=== PATIENT | male | born 1970 | race Caucasian/White ===

== ENCOUNTER → 2016-12-12 | Outpatient (CLI) | payer BC ==
[~2016-12-12] MED LIST: ANAPROX DS550 MG PO; ASPI-COR81 M1 PO; ATENOLOL50 MG PO; BIAXIN500 MG PO; CIPRODEX 0.3%-7.5 ML OT; EC NAPROSYN500 MG PO; FLEXERIL10 MG PO; LISINOPRIL10 MG; LISINOPRIL10 MG PO; MAXALT10 MG PO; NAPROSYN500 MG PO; PATANOL 5 ML5 M1 OPH; PERCOCET 325 MG1 TA2 PO; PREDNICOT20 MG PO; PRILOSEC20 M1 PO; TOPROL
== END | disposition home or self-care (01) ==
LOC: RAD 17:38
DX: J18.9 Pneumonia, unspecified organism (principal); R05 Cough; R09.89 Other specified symptoms and signs involving the circulatory and respiratory systems

== ENCOUNTER 2017-08-03 14:26 | Emergency (ER) | payer OTHER ==
[~2017-08-03] VITALS: Ht 182.8 cm; Wt 104.3 kg
[2017-08-03 14:53] LABS: BASO % 0.1 % (0.0-1.0); EOS % 0.3 % (1.0-4.0); HEMATOCRIT 46.7 % (42.0-52.0); HEMOGLOBIN 15.5 g/dl (14.0-18.0); LYMPH # 2.2 10*3/uL (1.3-4.4); LYMPH % 24.4 % (27.0-41.0); MEAN CORPUSCULAR HGB 30.2 pg (27.0-31.0); MEAN CORPUSCULAR HGB CONC 33.2 g/dl (33.0-37.0); MONO # 0.8 10*3/uL (0.1-1.0); MONO % 8.9 % (3.0-9.0); NEUT # 6.1 10*3/uL (2.3-7.9); NEUT % 65.9 % (47.0-73.0); PLATELET COUNT AUTOMATED 176 10*3/uL (130-400); RED BLOOD COUNT 5.13 10*6/uL (4.50-5.90); RED CELL DISTRI WIDTH 12.5 % (0-14.5); WHITE BLOOD COUNT 9.2 10*3/uL (4.8-10.8)
[2017-08-03 15:08] LABS: ALBUMIN 3.7 gm/dl (3.1-4.5); ALKALINE PHOSPHATASE 84 U/L (45-117); BUN 11 mg/dl (7-24); CHLORIDE 103 mmol/L (98-107); CREATININE 1.17 mg/dL (0.70-1.30); POTASSIUM 4.1 mmol/L (3.5-5.1); SGOT/AST 22 IU/L (3-35); SGPT/ALT 41 U/L (12-78); SODIUM 140 mmol/L (136-145); TOTAL PROTEIN 7.4 gm/dL (6.4-8.2)
[2017-08-03 15:13] LABS: BILIRUBIN NEGATIVE (NEGATIVE); BLOOD 1+ (NEGATIVE); CLARITY SL CLOUDY (CLEAR); COLOR YELLOW (YELLOW); GLUCOSE NEGATIVE (NEGATIVE); KETONE NEGATIVE (NEGATIVE); LEUKO ESTERASE NEGATIVE (NEGATIVE); NITRITE NEGATIVE (NEGATIVE); PH 6.5 (5.0-9.0); UROBILINOGEN 0.2 E.U./dl (0.2-1.0)
[2017-08-03 15:31] LABS: BACTERIA 1+; EPITHELIAL CELLS 0-2; MUCOUS 1+; WBC 0-2 wbc/hpf (0-5)
[2017-08-03] MEDS ORDERED: ZOFRAN4 MG PO (15:43)
== END 2017-08-03 15:48 | disposition home or self-care (01) ==
LOC: ED 14:26
PROVIDERS: Nurse Practitioner Family
DX: G43.909 Migraine, unspecified, not intractable, without status migrainosus (principal); R03.0 Elevated blood-pressure reading, without diagnosis of hypertension; Z88.2 Allergy status to sulfonamides; Z88.0 Allergy status to penicillin; Z79.82 Long term (current) use of aspirin; Z79.899 Other long term (current) drug therapy

== ENCOUNTER → 2017-08-14 | Outpatient (CLI) | payer OTHER ==
[~2017-08-14] MED LIST changes: +LISINOPRIL10 M1 PO; -LISINOPRIL10 MG PO; +LISINOPRIL20 MG PO; +MAXALT5 MG PO; +ZOFRAN4 MG PO
--- NOTE | 2017-08-14 10:00 | NUR ---
INFORMED CONSENT OBTAINED FOR EXERCISE CARDIOLITE STRESS TEST WITH DR. HARRSI. RESTING EKG NSR WITH A SUPINE HR OF 79 WITH BP OF 120/90 AND HR OF 88 WITH BP OF 108/86 IN STANDING POSITION. PT COMPLETED 7:00 OF A SANDI PROTOCOL WITH COMPLETION OF 1:00 OF STAGE III AT 3.4 MPH AND 14% GRADE. REACHED A PEAK HR OF 168 WHICH IS 98% OF PREDICTED MAX WITH A PEAK BP OF 170/104. TEST TERMINATED BECAUSE OF PHYSICIAN DISCRETION. HAD NO CHEST PAIN OR ANY EKG CHANGES. HAS AN AVERAGE EXERCISE TOLERANCE. LAST RECOVERY HR OF 109 WITH BP OF 148/88. TO NUCLEAR MEDICINE IN STABLE CONDITION FOR SCANNING.
== END | disposition home or self-care (01) ==
LOC: CARD 03:41
DX: R07.89 Other chest pain (principal)

== ENCOUNTER 2019-10-25 16:01 | Emergency (ER) | payer BC ==
[~2019-10-25] VITALS: Ht 182.8 cm; Wt 102.1 kg
[2019-10-25] MEDS ORDERED: Fioricet 325 MG1 TAB PO (19:24)
[2019-10-25] MEDS ORDERED: MEDROL DOSEPAK4 MG PO (19:29)
== END 2019-10-25 19:39 | disposition home or self-care (01) ==
LOC: ED 16:01
DX: G43.909 Migraine, unspecified, not intractable, without status migrainosus (principal); R11.0 Nausea; I10 Essential (primary) hypertension; K21.9 Gastro-esophageal reflux disease without esophagitis; F41.9 Anxiety disorder, unspecified; F32.9 Major depressive disorder, single episode, unspecified; Z88.0 Allergy status to penicillin; Z88.2 Allergy status to sulfonamides; Z79.899 Other long term (current) drug therapy

== ENCOUNTER → 2022-06-15 | Outpatient (CLI) | payer BC ==
[~2022-06-15] MED LIST changes: +Fioricet 325 MG1 TAB PO; +MEDROL DOSEPAK4 MG PO
[2022-06-15 17:59] LABS: BUN 13 mg/dl (7-24); CHLORIDE 109 mmol/L (98-107); CREATININE 1.23 mg/dL (0.70-1.30); POTASSIUM 4.1 mmol/L (3.5-5.1); SODIUM 141 mmol/L (136-145)
== END | disposition home or self-care (01) ==
LOC: LAB 16:58
PROVIDERS: ATTEND Internal Medicine
DX: U07.1 COVID-19 (principal)